=== PATIENT | male | born 1955 | race African-American/Black ===

== ENCOUNTER 2021-06-26 14:47 | Emergency (ER) | payer MEDICARE, MEDICAID ==
[~2021-06-26] VITALS: Ht 172.7 cm; Wt 100.0 kg
[2021-06-26] MEDS ORDERED: LEVETIRACETAM 500MG PREMIX 100 ML IV ONE (15:45)
[2021-06-26 16:51] LABS: HEMATOCRIT. 41.3 % (42.0-52.0); HEMOGLOBIN. 13.6 g/dL (14.0-18.0); MEAN CORPUSCULAR HEMOGLOBIN 31.7 pg (28.0-32.0); MEAN CORPUSCULAR VOLUME 95.8 fL (80.0-94.0); MEAN PLATELET VOLUME 7.3 fl (7.4-10.4); PLATELET 257 x1000/uL (130-400); RED BLOOD CELL COUNT 4.31 mill/uL (4.7-6.1); RED CELL DISTRIBUTION WIDTH 14.8 % (11.6-14.6)
[2021-06-26 16:57] LABS: CHLORIDE 95 mEq/L (98-107)
[2021-06-26 17:02] LABS: ETHANOL BLOOD < 10 mg/dL
[2021-06-26 17:52] LABS: CLARITY URINE CLEAR (CLEAR); COLOR URINE DARK YELLOW (YELLOW); KETONES URINE 3+ (NEGATIVE); LEUKOCYTE ESTERASE URINE NEGATIVE (NEGATIVE); NITRITE URINE NEGATIVE (NEGATIVE); OCCULT BLOOD URINE 3+ (NEGATIVE); PROTEIN URINE 4+ (NEGATIVE); SPECIFIC GRAVITY URINE 1.036 (1.005-1.030); UROBILINOGEN URINE 0.2 E.U./dL (0.2-1.0)
[2021-06-26 18:03] LABS: *BARBITURATES SCREEN URINE NEGATIVE (NEGATIVE); *BENZODIAZEPINES SCREEN URINE NEGATIVE (NEGATIVE); *COCAINE SCREEN URINE NEGATIVE (NEGATIVE); METHADONE URINE SCREEN NEGATIVE (NEGATIVE); OPIATES URINE SCREEN NEGATIVE (NEGATIVE)
[2021-06-26 18:04] LABS: CANNABINOID URINE SCREEN NEGATIVE (NEGATIVE); PHENCYCLIDINE URINE SCREEN NEGATIVE (NEGATIVE)
[2021-06-26 18:05] LABS: *AMPHETAMINES SCREEN URINE NEGATIVE (NEGATIVE)
[2021-06-26] MEDS ORDERED: KEPP500 MT (18:18)
[2021-06-26 20:08] LABS: PLATELET ESTIMATE NORMAL
[2021-06-26 20:30] VITALS: BP 131/81
== END 2021-06-26 21:46 | disposition home or self-care (01) ==
LOC: ER 14:47
DX: G40.909 Epilepsy, unspecified, not intractable, without status epilepticus (principal); I10 Essential (primary) hypertension; R73.9 Hyperglycemia, unspecified; D64.9 Anemia, unspecified
CPT/HCPCS: 36415; 70450; 71045; 80053; 80305; 80320; 81003; 85025; 93005; 96374; 99285; J1953; G0480

== ENCOUNTER 2021-07-21 12:43 | Emergency (ER) | payer MEDICARE, MEDICAID ==
[~2021-07-21] VITALS: Ht 175.3 cm; Wt 85.0 kg
[~2021-07-21 12:43] MED LIST: KEPP500 MT
[2021-07-21] MEDS ORDERED: LEVETIRACETAM 500MG PREMIX 100 ML IV ONE (14:15)
[2021-07-21 14:28] LABS: BASOPHILS % 0.4 % (0.0-2.0); HEMOGLOBIN. 14.4 g/dL (14.0-18.0); LYMPHOCYTES % 21.6 % (20.0-50.0); MEAN CORPUSCULAR VOLUME 95.9 fL (80.0-94.0); MEAN PLATELET VOLUME 7.5 fl (7.4-10.4); MONOCYTES % 5.2 % (2.0-8.0); NEUTROPHILS % 72.8 % (40.0-76.0); PLATELET 210 x1000/uL (130-400); RED BLOOD CELL COUNT 4.49 mill/uL (4.7-6.1); RED CELL DISTRIBUTION WIDTH 15.2 % (11.6-14.6)
[2021-07-21 14:35] LABS: CHLORIDE 98 mEq/L (98-107)
[2021-07-21 15:26] VITALS: BP 131/95
== END 2021-07-21 17:16 | disposition home or self-care (01) ==
LOC: ER 12:43
DX: G40.909 Epilepsy, unspecified, not intractable, without status epilepticus (principal); I10 Essential (primary) hypertension; E11.9 Type 2 diabetes mellitus without complications; Z79.899 Other long term (current) drug therapy
CPT/HCPCS: 36415; 80053; 85025; 96374; 99283; J1953

== ENCOUNTER 2021-09-07 17:05 | Emergency (ER) | payer MEDICARE, MEDICAID ==
[~2021-09-07] VITALS: Ht 172.7 cm; Wt 91.0 kg
[2021-09-07 18:25] LABS: HEMATOCRIT. 32.8 % (42.0-52.0); HEMOGLOBIN. 11.1 g/dL (14.0-18.0); MEAN CORPUSCULAR HEMOGLOBIN 32.9 pg (28.0-32.0); MEAN CORPUSCULAR VOLUME 97.5 fL (80.0-94.0); MEAN PLATELET VOLUME 6.9 fl (7.4-10.4); PLATELET 204 x1000/uL (130-400); RED BLOOD CELL COUNT 3.37 mill/uL (4.7-6.1); RED CELL DISTRIBUTION WIDTH 15.3 % (11.6-14.6)
[2021-09-07 18:32] LABS: CHLORIDE 98 mEq/L (98-107)
[2021-09-07 18:36] LABS: ETHANOL BLOOD 171 mg/dL
[2021-09-07 19:17] LABS: CLARITY URINE CLOUDY (CLEAR); COLOR URINE YELLOW (YELLOW); KETONES URINE TRACE (NEGATIVE); LEUKOCYTE ESTERASE URINE NEGATIVE (NEGATIVE); NITRITE URINE NEGATIVE (NEGATIVE); OCCULT BLOOD URINE TRACE (NEGATIVE); PH URINE 5.5 (4.5-8.0); PROTEIN URINE 3+ (NEGATIVE); SPECIFIC GRAVITY URINE 1.019 (1.005-1.030)
[2021-09-07 19:29] LABS: *AMPHETAMINES SCREEN URINE NEGATIVE (NEGATIVE); *BARBITURATES SCREEN URINE NEGATIVE (NEGATIVE); *BENZODIAZEPINES SCREEN URINE NEGATIVE (NEGATIVE); *COCAINE SCREEN URINE NEGATIVE (NEGATIVE)
[2021-09-07 19:30] LABS: CANNABINOID URINE SCREEN NEGATIVE (NEGATIVE); METHADONE URINE SCREEN NEGATIVE (NEGATIVE); OPIATES URINE SCREEN NEGATIVE (NEGATIVE); PHENCYCLIDINE URINE SCREEN NEGATIVE (NEGATIVE)
[2021-09-07 20:27] LABS: PLATELET ESTIMATE NORMAL
[2021-09-07] MEDS ORDERED: POTASSIUM CHLORIDE 20MEQ TABLET SR PO NR (21:00)
[2021-09-07 21:43] VITALS: BP 138/66
== END 2021-09-07 21:45 | disposition home or self-care (01) ==
LOC: ER 17:05
DX: R56.9 Unspecified convulsions (principal); E11.9 Type 2 diabetes mellitus without complications; I10 Essential (primary) hypertension
CPT/HCPCS: 36415; 80053; 80305; 80320; 81003; 82962; 85025; 99283; G0480

== ENCOUNTER 2022-08-22 12:23 | Emergency (ER) | payer MEDICARE, MEDICAID ==
[~2022-08-22] VITALS: Ht 177.8 cm; Wt 89.0 kg
[2022-08-22] MEDS ORDERED: LEVETIRACETAM 1000MG PREMIX 100 ML IV ONE (12:45)
[2022-08-22 14:30] LABS: BASOPHILS % 0.5 % (0.0-2.0); EOSINOPHILS % 0.2 % (0.0-5.0); HEMATOCRIT. 43.1 % (42.0-52.0); HEMOGLOBIN. 14.1 g/dL (14.0-18.0); LYMPHOCYTES % 30.9 % (20.0-50.0); MEAN CORPUSCULAR HEMOGLOBIN 32.2 pg (28.0-32.0); MEAN CORPUSCULAR VOLUME 98.5 fL (80.0-94.0); MEAN PLATELET VOLUME 7.7 fl (7.4-10.4); MONOCYTES % 7.4 % (2.0-8.0); PLATELET 178 x1000/uL (130-400); RED BLOOD CELL COUNT 4.37 mill/uL (4.7-6.1)
[2022-08-22 14:38] LABS: CHLORIDE 98 mEq/L (98-107)
[2022-08-22 14:47] LABS: ETHANOL BLOOD < 10 mg/dL
[2022-08-22 15:13] LABS: CLARITY URINE CLEAR (CLEAR); COLOR URINE YELLOW (YELLOW); KETONES URINE 1+ (NEGATIVE); LEUKOCYTE ESTERASE URINE NEGATIVE (NEGATIVE); NITRITE URINE NEGATIVE (NEGATIVE); OCCULT BLOOD URINE 2+ (NEGATIVE); PH URINE 5.5 (4.5-8.0); PROTEIN URINE 4+ (NEGATIVE); SPECIFIC GRAVITY URINE 1.021 (1.005-1.030)
[2022-08-22] MEDS ORDERED: AMLODIPINE 5MG TABLET PO ONE (15:15)
[2022-08-22 15:33] LABS: *AMPHETAMINES SCREEN URINE NEGATIVE (NEGATIVE); *BARBITURATES SCREEN URINE NEGATIVE (NEGATIVE); *BENZODIAZEPINES SCREEN URINE NEGATIVE (NEGATIVE); *COCAINE SCREEN URINE NEGATIVE (NEGATIVE); CANNABINOID URINE SCREEN NEGATIVE (NEGATIVE); METHADONE URINE SCREEN NEGATIVE (NEGATIVE); OPIATES URINE SCREEN NEGATIVE (NEGATIVE); PHENCYCLIDINE URINE SCREEN NEGATIVE (NEGATIVE)
[2022-08-22] MEDS ORDERED: KEPP500 MT (15:36)
[2022-08-22 16:43] VITALS: BP 168/95
== END 2022-08-22 16:45 | disposition home or self-care (01) ==
LOC: ER 12:44
DX: G40.909 Epilepsy, unspecified, not intractable, without status epilepticus (principal); I16.0 Hypertensive urgency; R94.31 Abnormal electrocardiogram [ECG] [EKG]
CPT/HCPCS: 36415; 70450; 80053; 80305; 80320; 81003; 85025; 93005; 96365; 96366; 99285; J1953; G0480

== ENCOUNTER 2022-10-26 12:20 | Inpatient (IN) | payer MEDICARE, MEDICAID ==
[~2022-10-26] VITALS: Ht 185.4 cm; Wt 104.6 kg
[2022-10-26 13:24] LABS: BASOPHILS % 1.1 % (0.0-2.0); EOSINOPHILS % 0.8 % (0.0-5.0); HEMATOCRIT. 38.3 % (42.0-52.0); HEMOGLOBIN. 13.2 g/dL (14.0-18.0); LYMPHOCYTES % 30.9 % (20.0-50.0); MEAN PLATELET VOLUME 7.1 fl (7.4-10.4); MONOCYTES % 8.7 % (2.0-8.0); NEUTROPHILS % 58.5 % (40.0-76.0); PLATELET 227 x1000/uL (130-400); RED BLOOD CELL COUNT 3.99 mill/uL (4.7-6.1); RED CELL DISTRIBUTION WIDTH 15.8 % (11.6-14.6)
[2022-10-26 13:32] LABS: CHLORIDE 98 mEq/L (98-107)
[2022-10-26 13:42] LABS: BETA HYDROXYBUTYRATE 0.2 mMol/L (0.0-0.3); ETHANOL BLOOD 70 mg/dL
[2022-10-26] MEDS ORDERED: ASPIRIN 81MG TABLET PO ONE (13:45)
[2022-10-26] MEDS ORDERED: INSULIN REGULAR (HUMULIN R) 300UNITS/3ML VIAL SUBCUT NR (14:00)
[2022-10-26] MEDS ORDERED: IOHEXOL-350 100 ML BOTTLE ONE (14:06)
[2022-10-26] MEDS ORDERED: DEXTROSE 50% WATER 50ML SYRINGE IV PRN (16:15)
[2022-10-26] MEDS ORDERED: KETOROLAC 15MG/ML VIAL IV PRN (16:15)
[2022-10-26] MEDS ORDERED: GUAIFENESIN 200MG/10ML SUGAR FREE UDC PO PRN (16:15)
[2022-10-26] MEDS ORDERED: ACETAMINOPHEN 325MG TABLET PO PRN ×2 (16:15)
[2022-10-26] MEDS ORDERED: DOCUSATE SODIUM 100MG CAPSULE PO PRN (16:15)
[2022-10-26] MEDS ORDERED: IPRATROPIUM/ALBUTEROL 0.5-3(2.5)MG/3ML NEB NEB PRN (16:15)
[2022-10-26] MEDS ORDERED: MAGNESIUM/ALUMINUM HYDROXIDE/SIMETHICONE 30ML UDC PO PRN (16:15)
[2022-10-26] MEDS ORDERED: NITROGLYCERIN 0.4MG TABLET SL SL PRN (16:15)
[2022-10-26] MEDS ORDERED: ONDANSETRON HCL 4MG/2ML INJ IV PRN (16:15)
[2022-10-26] MEDS ORDERED: ZOLPIDEM TARTRATE 5MG TABLET PO PRN (16:15)
[2022-10-26] MEDS: BLOOD SUGAR DIAGNOSTIC STRIP TEST SCH (17:00)
[2022-10-26] MEDS: CLONIDINE 0.1MG TABLET PO PRN (17:28)
[2022-10-26 19:30] LABS: T4 FREE 0.93 ng/dL (0.76-1.46)
[2022-10-26 19:48] LABS: FOLIC ACID (FOLATE) SERUM 4.9 ng/mL (>5.38)
[2022-10-26] MEDS: INSULIN LISPRO 100 UNITS/ML SUBCUT SCH (20:20)
[2022-10-26] MEDS: ENOXAPARIN 40MG/0.4ML SYR SUBCUT SCH (20:30)
[2022-10-26 22:50] LABS: CREATINE KINASE MB FRACTION 4.7 ng/mL (0.5-3.6)
[2022-10-26 23:30] VITALS: BP 162/100
[2022-10-27] VITALS (7 sets, daily range): BP systolic 129–174; BP diastolic 67–104
[2022-10-27] MEDS: BLOOD SUGAR DIAGNOSTIC STRIP TEST SCH ×5 (01:06→20:19)
[2022-10-27] MEDS: FAMOTIDINE 20MG TABLET PO SCH ×3 (01:07→21:08)
[2022-10-27] MEDS: LEVETIRACETAM 500MG TABLET PO SCH ×3 (01:07→21:08)
[2022-10-27] MEDS: INSULIN GLARGINE 100 UNITS/ML SUBCUT SCH ×2 (01:16→21:11)
[2022-10-27] MEDS: INSULIN LISPRO 100 UNITS/ML SUBCUT SCH ×5 (01:17→21:11)
[2022-10-27 03:37] LABS: CLARITY URINE CLEAR (CLEAR); COLOR URINE YELLOW (YELLOW); KETONES URINE TRACE (NEGATIVE); LEUKOCYTE ESTERASE URINE NEGATIVE (NEGATIVE); NITRITE URINE NEGATIVE (NEGATIVE); OCCULT BLOOD URINE 1+ (NEGATIVE); PH URINE 5.5 (4.5-8.0); PROTEIN URINE 3+ (NEGATIVE); SPECIFIC GRAVITY URINE 1.031 (1.005-1.030)
[2022-10-27 03:50] LABS: *AMPHETAMINES SCREEN URINE NEGATIVE (NEGATIVE); *BARBITURATES SCREEN URINE NEGATIVE (NEGATIVE); *BENZODIAZEPINES SCREEN URINE NEGATIVE (NEGATIVE); *COCAINE SCREEN URINE NEGATIVE (NEGATIVE); CANNABINOID URINE SCREEN NEGATIVE (NEGATIVE); METHADONE URINE SCREEN NEGATIVE (NEGATIVE); OPIATES URINE SCREEN NEGATIVE (NEGATIVE); PHENCYCLIDINE URINE SCREEN NEGATIVE (NEGATIVE)
[2022-10-27] MEDS: CLONIDINE 0.1MG TABLET PO PRN (04:24)
[2022-10-27] MEDS ORDERED: METF-414 PO (04:46)
[2022-10-27] MEDS ORDERED: AMLO5TAB88 PO (04:46)
[2022-10-27 06:10] LABS: BASOPHILS % 0.7 % (0.0-2.0); CHLORIDE 98 mEq/L (98-107); HEMOGLOBIN. 12.4 g/dL (14.0-18.0); MEAN CORPUSCULAR HEMOGLOBIN 32.2 pg (28.0-32.0); MEAN CORPUSCULAR VOLUME 96.3 fL (80.0-94.0); MEAN PLATELET VOLUME 7.5 fl (7.4-10.4); MONOCYTES % 9.6 % (2.0-8.0); NEUTROPHILS % 50.7 % (40.0-76.0); PLATELET 219 x1000/uL (130-400); RED BLOOD CELL COUNT 3.85 mill/uL (4.7-6.1); RED CELL DISTRIBUTION WIDTH 15.7 % (11.6-14.6)
[2022-10-27 06:28] LABS: CREATINE KINASE 180 IU/L (39-308); CREATINE KINASE MB FRACTION 4.8 ng/mL (0.5-3.6)
[2022-10-27] MEDS: ASPIRIN 325MG EC TABLET PO SCH (09:24)
[2022-10-27] MEDS ORDERED: POTASSIUM CHLORIDE 20MEQ/PACKET PO NR (11:00)
[2022-10-27] MEDS ORDERED: MAGNESIUM 4 G PREMIX 100 ML IV NR (13:00)
[2022-10-27] MEDS: FOLIC ACID 1MG TABLET PO SCH (14:35)
[2022-10-27] MEDS: MULTIVITAMINS,THER W-MINERALS TABLET PO SCH (14:35)
[2022-10-27] MEDS: THIAMINE HCL 100MG TABLET PO SCH (14:35)
[2022-10-27] MEDS: AMLODIPINE 10MG TABLET PO SCH (14:36)
[2022-10-27] MEDS: ENOXAPARIN 40MG/0.4ML SYR SUBCUT SCH (17:59)
[2022-10-28] VITALS: BP 138/80
[2022-10-28 03:39] VITALS: BP 135/90
[2022-10-28] MEDS: INSULIN LISPRO 100 UNITS/ML SUBCUT SCH ×2 (05:37→13:13)
[2022-10-28] MEDS: BLOOD SUGAR DIAGNOSTIC STRIP TEST SCH ×2 (06:13→11:50)
[2022-10-28 08:00] VITALS: BP 145/79
[2022-10-28] MEDS: THIAMINE HCL 100MG TABLET PO SCH (08:54)
[2022-10-28] MEDS: FAMOTIDINE 20MG TABLET PO SCH (08:54)
[2022-10-28] MEDS: ASPIRIN 325MG EC TABLET PO SCH (08:54)
[2022-10-28] MEDS: AMLODIPINE 10MG TABLET PO SCH (08:54)
[2022-10-28] MEDS: MULTIVITAMINS,THER W-MINERALS TABLET PO SCH (08:55)
[2022-10-28] MEDS: FOLIC ACID 1MG TABLET PO SCH (08:55)
[2022-10-28] MEDS: LEVETIRACETAM 500MG TABLET PO SCH (08:55)
[2022-10-28] MEDS ORDERED: LOSARTAN POTASSIUM 50 MG TABLET PO SCH (09:45)
[2022-10-28] MEDS ORDERED: CLOPIDOGREL 75MG TABLET PO SCH (09:45)
[2022-10-28] MEDS ORDERED: LANTUSUD SUBCUT (10:47)
[2022-10-28] MEDS ORDERED: CLOP-31 PO (10:47)
[2022-10-28] MEDS ORDERED: FAMO20TA8 PO (10:47)
[2022-10-28] MEDS ORDERED: FOLI-43 PO (10:47)
[2022-10-28] MEDS ORDERED: LIP40 PO (10:47)
[2022-10-28] MEDS ORDERED: INSLIS SUBCUT (10:47)
[2022-10-28] MEDS ORDERED: LOSA50TA3 PO (10:47)
[2022-10-28] MEDS ORDERED: THIA100T72 PO (10:47)
[2022-10-28 12:00] VITALS: BP 136/69
[2022-10-28 13:49] VITALS: BP 144/72
[2022-10-28] MEDS ORDERED: ATORVASTATIN CALCIUM 40MG TABLET PO SCH (21:00)
== END 2022-10-28 15:10 | disposition home health service (06) | DRG 64 ==
LOC: ER 12:20 → ENRESERV 13:41 → EDBEDREQ 13:42 → EDBEDREQTM 13:42 → EDBEDREQSVC 13:42 → MICUSO 14:47 → EDBEDREQTM 14:50 → EDBEDREQ 14:50 → ENRESERV 16:53 → 3WST 23:05
PROVIDERS: ADMIT Internal Medicine; ATTEND Internal Medicine
DX: I63.81 Other cerebral infarction due to occlusion or stenosis of small artery (principal); E11.00 Type 2 diabetes mellitus with hyperosmolarity without nonketotic hyperglycemic-hyperosmolar coma (NKHHC); G92.8 Other toxic encephalopathy; E44.0 Moderate protein-calorie malnutrition; D63.8 Anemia in other chronic diseases classified elsewhere; R29.702 NIHSS score 2; E66.9 Obesity, unspecified; E83.51 Hypocalcemia; I10 Essential (primary) hypertension; Z68.30 Body mass index [BMI] 30.0-30.9, adult; Z82.49 Family history of ischemic heart disease and other diseases of the circulatory system
CPT/HCPCS: 36415; 70496; 70498; 70551; 71045; 80053; 80061; 80305; 80320; 81003; 82010; 82550; 82553; 82607; 82746; 82962; 83036; 83540; 83550; 83735; 83930; 84100; 84439; 84443; 84484; 85025; 93005; 93306; 93970; 97162; 99291; J1650; J1815; J3475; Q9967; G0480

== ENCOUNTER 2023-03-18 12:19 | Emergency (ER) | payer MEDICARE, MEDICAID ==
[~2023-03-18] VITALS: Ht 185.4 cm; Wt 105.0 kg
[~2023-03-18 12:19] MED LIST changes: +AMLO5TAB88 PO; +CLOP-31 PO; +FAMO20TA8 PO; +FOLI-43 PO; +INSLIS SUBCUT; +LANTUSUD SUBCUT; +LIP40 PO; +LOSA-413 PO; +METF-414 PO; +THIA100T72 PO
[2023-03-18 12:39] VITALS: BP 129/65; PULSE 87; RESP 18; TEMP 98.7; O2SAT 99
[2023-03-18 17:04] LABS: BASOPHILS % 0.9 % (0.0-2.0); EOSINOPHILS % 0.6 % (0.0-5.0); HEMATOCRIT. 39.6 % (42.0-52.0); HEMOGLOBIN. 13.5 g/dL (14.0-18.0); LYMPHOCYTES % 19.2 % (20.0-50.0); MEAN CORPUSCULAR HEMOGLOBIN 33.6 pg (28.0-32.0); MEAN CORPUSCULAR HGB CONC 34.1 g/dL (31.0-37.0); MEAN CORPUSCULAR VOLUME 98.5 fL (80.0-94.0); MEAN PLATELET VOLUME 7.5 fl (7.4-10.4); MONOCYTES % 13.4 % (2.0-8.0); NEUTROPHILS % 65.9 % (40.0-76.0); PLATELET 286 x1000/uL (130-400); RED BLOOD CELL COUNT 4.02 mill/uL (4.7-6.1); RED CELL DISTRIBUTION WIDTH 16.5 % (11.6-14.6); WHITE BLOOD COUNT 9.5 x1000/uL (4.5-11.0)
[2023-03-18 17:11] LABS: CALCIUM 7.5 mg/dL (8.5-10.1); CHLORIDE 101 mEq/L (98-107); INDEX HEMOLYSI 1 (1-3); INDEX ICTERIC 1 (1-4); INDEX LIPEMIC 1 (1-3); POTASSIUM 3.7 mEq/L (3.5-5.1); SODIUM 130 mEq/L (136-145)
[2023-03-18 17:16] LABS: CARBON DIOXIDE 22 mEq/L (21-32); CREATININE 1.1 mg/dL (0.6-1.3); GLUCOSE 186 mg/dL (70-105); UREA NITROGEN BLOOD 13 mg/dL (7-21)
[2023-03-18] MEDS ORDERED: NAPR500T7 MT (17:27)
== END 2023-03-18 20:38 | disposition home or self-care (01) ==
LOC: ER 12:19
DX: S39.012A Strain of muscle, fascia and tendon of lower back, initial encounter (principal); M47.816 Spondylosis without myelopathy or radiculopathy, lumbar region; M51.36 Other intervertebral disc degeneration, lumbar region; I10 Essential (primary) hypertension; E11.9 Type 2 diabetes mellitus without complications; I63.9 Cerebral infarction, unspecified; Z79.899 Other long term (current) drug therapy; X58.XXXA Exposure to other specified factors, initial encounter; Y93.89 Activity, other specified; Y92.89 Other specified places as the place of occurrence of the external cause; Y99.8 Other external cause status
CPT/HCPCS: 36415; 72100; 73610; 80048; 85025; 99284